=== PATIENT | female | born 1960 | race Caucasian/White ===

== ENCOUNTER 2021-06-02 18:38 | Inpatient (IN) | payer MEDICAID, OTHER ==
[~2021-06-02] VITALS: Ht 170.2 cm; Wt 79.7 kg
[2021-06-02] MEDS ORDERED: SODIUM CHLORIDE 0.9% 1,000 ML IVB ONE (19:00)
[2021-06-02] MEDS ORDERED: PROCHLORPERAZINE EDISYLATE 5 MG/ML 2ML VIAL IV ONE (19:00)
[2021-06-02] MEDS ORDERED: PANTOPRAZOLE 40 MG/10 ML VIAL INJ IV ONE (19:00)
[2021-06-02] MEDS ORDERED: MORPHINE SULFATE 4 MG/ML SYR/VIAL IV ONE (19:00)
[2021-06-02 19:32] LABS: Basophils # (auto) 0.1 10 ^3/uL (0-0.2); Basophils % (auto) 0.4 % (0.0-2.0); Eosinophils # (auto) 0 10 ^3/uL (0-0.8); Hematocrit 41.4 % (36.0-46.0); Lymphocytes # (auto) 1.3 10 ^3/uL (0.4-5.4); Lymphocytes % (auto) 10.3 % (10.0-50.0); Mean Corpuscular Hemoglobin 29.9 pg (28.0-32.0); Mean Corpuscular Hgb Conc. 33.8 g/dL (32.0-36.0); Mean Corpuscular Volume 88.5 fL (80.0-100.0); Monocytes # (auto) 0.3 10 ^3/uL (0-1.3); Monocytes % (auto) 2.4 % (0.0-12.0); Neutrophils % (auto) 86.9 % (37.0-80.0); Red Blood Cells 4.67 10^6/uL (4.0-5.20); Red Cell Distribution Width 14.2 % (11.8-14.3); White Blood Cell 12.6 10^3/uL (4.4-10.8)
[2021-06-02 19:51] LABS: Albumin 4.1 g/dL (3.4-5.0); BUN/Creatinine Ratio 22.1; Calcium 9.6 mg/dL (8.5-10.1); Potassium 3.5 mmol/L (3.5-5.1)
[2021-06-02 19:54] LABS: Bilirubin, Total 0.6 mg/dL (0.2-1.0); Total Protein 7.8 g/dL (6.4-8.2)
[2021-06-02] MEDS ORDERED: ONDANSETRON HCL 4 MG/2 ML VIAL IV ONE (21:30)
[2021-06-02] MEDS ORDERED: TEMAZEPAM 15 MG CAP PO PRN (21:45)
[2021-06-02] MEDS ORDERED: ACETAMINOPHEN 325 MG TAB PO PRN (21:45)
[2021-06-02] MEDS: GABAPENTIN 300 MG CAP PO SCH (22:15)
[2021-06-02] MEDS ORDERED: LABETALOL HCL 5 MG/ML 4ML SYRINGE IV ONE (22:15)
[2021-06-02] MEDS: metroNIDAZOLE 500MG/100ML 100 ML IV SCH (22:15)
[2021-06-02 23:32] VITALS: BP 154/99
[2021-06-03] MEDS: HYDROcodone-ACET 5/325MG TAB PO PRN ×4 (00:49→22:34)
[2021-06-03] MEDS: ONDANSETRON HCL 4 MG/2 ML VIAL IV PRN ×3 (00:52→17:37)
[2021-06-03 01:31] VITALS: BP 154/99
[2021-06-03] MEDS ORDERED: LIDO5PAD8 TOP (02:38)
[2021-06-03] MEDS ORDERED: CHOL20002 PO (02:38)
[2021-06-03] MEDS ORDERED: GABA-339 PO (02:38)
[2021-06-03] MEDS ORDERED: MELO1TAB56 PO (02:38)
[2021-06-03] MEDS ORDERED: CETI-120 PO (02:38)
[2021-06-03] MEDS ORDERED: DICY10CA PO (02:38)
[2021-06-03] MEDS ORDERED: VENL75CA78 PO (02:38)
[2021-06-03] MEDS ORDERED: FLUT50SP EACHNOSTRI (02:38)
[2021-06-03] MEDS ORDERED: HYDR-4072 PO (02:38)
[2021-06-03] MEDS ORDERED: TIZA4TAB7 PO (02:38)
[2021-06-03] MEDS ORDERED: FAMO40TA7 PO (02:38)
[2021-06-03] MEDS: MORPHINE SULFATE INJECTION 2 MG/ML SYRG IV PRN ×3 (04:10→18:31)
[2021-06-03 05:00] VITALS: BP 137/83
[2021-06-03] MEDS: metroNIDAZOLE 500MG/100ML 100 ML IV SCH ×2 (06:00→14:07)
[2021-06-03] MEDS: GABAPENTIN 300 MG CAP PO SCH (06:01)
[2021-06-03 06:30] LABS: Basophils # (auto) 0 10 ^3/uL (0-0.2); Basophils % (auto) 0.2 % (0.0-2.0); Eosinophils # (auto) 0 10 ^3/uL (0-0.8); Hematocrit 39.2 % (36.0-46.0); Hemoglobin 13.5 g/dL (12.2-16.2); Lymphocytes # (auto) 2.1 10 ^3/uL (0.4-5.4); Lymphocytes % (auto) 13.6 % (10.0-50.0); Mean Corpuscular Hemoglobin 30.6 pg (28.0-32.0); Mean Corpuscular Hgb Conc. 34.5 g/dL (32.0-36.0); Mean Corpuscular Volume 88.6 fL (80.0-100.0); Monocytes # (auto) 0.9 10 ^3/uL (0-1.3); Monocytes % (auto) 5.6 % (0.0-12.0); Neutrophils # (auto) 12.6 10 ^3/uL (1.6-8.6); Neutrophils % (auto) 80.6 % (37.0-80.0); Red Blood Cells 4.42 10^6/uL (4.0-5.20); Red Cell Distribution Width 14.2 % (11.8-14.3); White Blood Cell 15.7 10^3/uL (4.4-10.8)
[2021-06-03 06:44] LABS: Potassium 3.8 mmol/L (3.5-5.1)
[2021-06-03 06:51] LABS: Albumin 3.9 g/dL (3.4-5.0); BUN/Creatinine Ratio 19.8; Bilirubin, Total 0.6 mg/dL (0.2-1.0); Calcium 8.9 mg/dL (8.5-10.1); Total Protein 7.3 g/dL (6.4-8.2)
[2021-06-03 08:59] LABS: Alcohol, Urine < 3.0 mg/dL (0-10); Amphetamine Screen, Urine NEGATIVE (NEGATIVE); Barbiturate Scree,Urine NEGATIVE (NEGATIVE); Benzodiazephine Screen, Urine NEGATIVE (NEGATIVE); Cannabinoid Screen, Urine NEGATIVE (NEGATIVE); Cocaine Screen, Urine NEGATIVE (NEGATIVE); Opiate Scree,Urine POSITIVE (NEGATIVE); Phencyclidine Screen, Urine NEGATIVE (NEGATIVE)
[2021-06-03 09:00] VITALS: BP_SYST 101; BP_SYST 189; BP_DIAS 65; BP_DIAS 88
[2021-06-03 09:03] LABS: Urine Bacteria NONE SEEN /hpf (None Seen); Urine Blood 1+ /uL (Negative); Urine Specific Gravity 1.014 (1.001-1.035); Urine WBC 2 /hpf (0 - 5)
[2021-06-03] MEDS: LISINOPRIL 20 MG TAB PO SCH (10:00)
[2021-06-03] MEDS ORDERED: HCTZ 25 MG TAB PO SCH (10:00)
[2021-06-03] MEDS ORDERED: levoFLOXacin 500MG 100 ML IV ONE (11:00)
[2021-06-03] MEDS: D5W/SOD CHLO 0.9% 1,000 ML IV SCH (13:15)
[2021-06-03 13:24] VITALS: BP 101/65
[2021-06-03] MEDS: PANTOPRAZOLE 40 MG/10 ML VIAL INJ IV SCH ×2 (14:30→22:34)
[2021-06-03] MEDS: SUCRALFATE 1 GM/10 ML ORAL SUSP PO SCH ×3 (14:30→22:00)
[2021-06-03 17:00] VITALS: BP 108/73
[2021-06-03 22:00] VITALS: BP 113/85
[2021-06-04] MEDS: ONDANSETRON HCL 4 MG/2 ML VIAL IV PRN ×3 (00:58→12:25)
[2021-06-04] MEDS: MORPHINE SULFATE INJECTION 2 MG/ML SYRG IV PRN ×3 (01:02→12:25)
[2021-06-04] MEDS: metroNIDAZOLE 500MG/100ML 100 ML IV SCH (03:33)
[2021-06-04] MEDS: GABAPENTIN 300 MG CAP PO SCH ×2 (03:47→06:00)
[2021-06-04 05:00] VITALS: BP 128/84
[2021-06-04] MEDS: D5W/SOD CHLO 0.9% 1,000 ML IV SCH (05:17)
[2021-06-04 06:19] LABS: Basophils # (auto) 0 10 ^3/uL (0-0.2); Basophils % (auto) 0.4 % (0.0-2.0); Eosinophils # (auto) 0.1 10 ^3/uL (0-0.8); Eosinophils % (auto) 0.6 % (0.0-7.0); Hematocrit 35.5 % (36.0-46.0); Lymphocytes # (auto) 2.6 10 ^3/uL (0.4-5.4); Lymphocytes % (auto) 28.9 % (10.0-50.0); Mean Corpuscular Hemoglobin 30.4 pg (28.0-32.0); Mean Corpuscular Hgb Conc. 33.7 g/dL (32.0-36.0); Mean Corpuscular Volume 90.1 fL (80.0-100.0); Monocytes # (auto) 0.8 10 ^3/uL (0-1.3); Monocytes % (auto) 8.6 % (0.0-12.0); Neutrophils # (auto) 5.5 10 ^3/uL (1.6-8.6); Neutrophils % (auto) 61.5 % (37.0-80.0); Red Blood Cells 3.95 10^6/uL (4.0-5.20)
[2021-06-04] MEDS: SUCRALFATE 1 GM/10 ML ORAL SUSP PO SCH ×2 (06:36→12:00)
[2021-06-04] MEDS ORDERED: MIDAZOLAM HCL 5 MG/ML-1ML VIAL ONE (08:45)
[2021-06-04] MEDS ORDERED: LIDOCAINE VISCOUS 2% 15ML UD ONE (08:45)
[2021-06-04] MEDS ORDERED: SODIUM CHLORIDE LOCK 10 ML ONE (08:45)
[2021-06-04] MEDS ORDERED: diphenhdrAMINE HCL 50 MG/1 ML VL ONE (08:45)
[2021-06-04] MEDS ORDERED: fentaNYL CITRATE 100 MCG/2 ML VL ONE (08:45)
[2021-06-04 09:00] VITALS: BP 123/78
[2021-06-04] MEDS ORDERED: levoFLOXacin 500MG 100 ML IV SCH (10:00)
[2021-06-04] MEDS: PANTOPRAZOLE 40 MG/10 ML VIAL INJ IV SCH (12:00)
[2021-06-04] MEDS ORDERED: ONDANSETRON HCL 4 MG/2 ML VIAL ONE (12:08)
[2021-06-04 12:12] LABS: INR 1.12 (0.9-1.15); Partial Thromboplastin Time 29.6 sec (23.6-33.0)
[2021-06-04] MEDS: LISINOPRIL 20 MG TAB PO SCH (12:24)
[2021-06-04 13:00] VITALS: BP 122/85
[2021-06-04] MEDS ORDERED: PANT40TA2 PO (15:00)
[2021-06-04] MEDS ORDERED: SUCR1TAB22 OR (15:01)
[2021-06-04] MEDS ORDERED: METR500T PO (15:02)
[2021-06-04] MEDS ORDERED: LEVO500T31 PO (15:02)
[2021-06-04] MEDS: HYDROcodone-ACET 5/325MG TAB PO PRN (16:27)
[2021-06-04 17:00] VITALS: BP 101/64
[2021-06-04 17:27] VITALS: BP 101/64
== END 2021-06-04 18:07 | disposition home or self-care (01) | DRG 241 ==
LOC: EDBD 18:38 → ER 18:38 → OVERFLOW 21:33 → WEST WING 22:54
PROVIDERS: ADMIT Nurse Practitioner; ATTEND Internal Medicine Nephrology
PROC: 0DJ08ZZ Inspection of Upper Intestinal Tract, Via Natural or Artificial Opening Endoscopic (ICD-10-PCS; principal; 2021-06-04 09:23)
DX: K29.70 Gastritis, unspecified, without bleeding (principal); G89.4 Chronic pain syndrome; I10 Essential (primary) hypertension; K44.9 Diaphragmatic hernia without obstruction or gangrene; Z20.822 Contact with and (suspected) exposure to COVID-19; K52.9 Noninfective gastroenteritis and colitis, unspecified; Z86.19 Personal history of other infectious and parasitic diseases; Z88.2 Allergy status to sulfonamides; Z88.0 Allergy status to penicillin; Z90.49 Acquired absence of other specified parts of digestive tract
CPT/HCPCS: 36415; 43235; 74176; 76705; 80053; 80307; 81001; 82150; 83036; 83690; 85025; 85610; 85730; 93005; 96361; 96374; 96375; C9113; G0378; J1956; J2250; J2405; J3490; J7042